=== PATIENT | female | born 1935 | race Caucasian/White ===

== ENCOUNTER → 2017-03-12 | Outpatient (CLI) | payer MEDICARE, OTHER ==
[~2017-03-12] MED LIST: ACET65TA OR; ASPI325T OR; CALCARB WITH VIT D PO; HYDROCLOROTHIAZIDE PO; MAG-TAB OR; NORV5TAB OR; POTA10CA2 OR; SIMV20TA2 OR; SYNT50TA OR; VITA500C OR; [UNRECOGNIZED DRUG - OTHER] OR; [UNRECOGNIZED DRUG - OTHER] PO
--- NOTE | 2017-03-12 15:07 | REPMRS ---
Patient History The patient states she has not had a clinical breast exam in over a year. Patient has history of other cancer at age 75. Family history of unknown cancer in sister at age 40. Took estrogen for 1 year. Digital Mammo Screening Bilat: March 12, 2017 - Exam #: [id number] Bilateral CC and MLO view(s) were taken. Technologist: Marisa Chambers, Technologist Prior study comparison: March 06, 2016, bilateral digital mammo screening bilat performed at [facility]. March 07, 2015, bilateral digital mammo screening bilat performed at [facility]. FINDINGS: There are scattered fibroglandular densities. There has been no change in the appearance of the mammogram from the prior studies. There is a mild amount of residual fibroglandular tissue which is fairly symmetric. There is no interval development of dominant mass, architectural distortion, or clustered microcalcification suggestive of malignancy. ASSESSMENT: BI-RADS/ACR category 1 mammogram. Negative. Recommendation Routine screening mammogram in 1 year (for women over age 40). This mammogram was interpreted with the aid of an FDA-approved computer-aided dectection system. Electronically Signed By: Jose A Parra MD 03/12/17 [id number]
== END ==
LOC: M RAD 14:19
PROVIDERS: ATTEND Internal Medicine
DX: Z12.31 Encounter for screening mammogram for malignant neoplasm of breast (principal); Z85.9 Personal history of malignant neoplasm, unspecified

== ENCOUNTER → 2017-10-11 | Outpatient (CLI) | payer MEDICARE, OTHER | LOC: M WUC 15:09 | DX: J20.9 Acute bronchitis, unspecified (principal) | CPT/HCPCS: 71046 ==

== ENCOUNTER → 2017-11-11 | Outpatient (CLI) | payer MEDICARE, OTHER | LOC: M WUC 11:57 | DX: M11.252 Other chondrocalcinosis, left hip (principal); M81.0 Age-related osteoporosis without current pathological fracture | CPT/HCPCS: 73502 ==

== ENCOUNTER → 2018-03-14 | Outpatient (CLI) | payer MEDICARE, OTHER | LOC: M RAD 14:44 | DX: Z12.31 Encounter for screening mammogram for malignant neoplasm of breast (principal) | CPT/HCPCS: 77067 ==

== ENCOUNTER → 2019-03-17 | Outpatient (CLI) | payer MEDICARE, OTHER ==
--- NOTE | 2019-03-17 10:21 | REP ---
BILATERAL SCREENING DIGITAL MAMMOGRAM WITHOUT 3D TOMOSYNTHESIS: There are no palpable abnormalities or other breast complaints. The the patient states she has not had a clinical breast examination in over a year. The Tyrer Cuzick Score is: 0.3% . Comparisons are 02/28/2014, 03/06/2016 and 03/14/2018. The breasts are heterogeneously dense, which could obscure small masses. There is no dominant mass, micro calcific cluster or architectural distortion that would indicate malignancy. There is no change from the prior studies. Impression: BIRADS/ACR category 1 mammogram. Negative. Recommendation: Routine annual screening mammography. Because of the increased breast density, annual adjunctive breast MRI in addition to screening mammography is recommended. These can be performed at alternating six month intervals. This mammogram was interpreted with the aid of a FDA approved computer-aided detection system. A. Negative mammogram reports should not delay biopsy if a dominant or clinically suspicious mass is present. B. Not all breast cancers are identified by mammography or tomosynthesis. C. Adenosis and dense breasts may obscure an underlying neoplasm. Patient letter M1 dense breasts. Electronically Signed by Jose A St MD 03/17/2019 10:13 A
== END ==
LOC: M RAD 09:37
PROVIDERS: ATTEND Internal Medicine
DX: Z12.31 Encounter for screening mammogram for malignant neoplasm of breast (principal)

== ENCOUNTER → 2019-08-27 | Outpatient (CLI) | payer MEDICARE, OTHER ==
--- NOTE | 2019-08-27 13:47 | REP ---
RIGHT HUMERUS, TWO VIEWS: Two views of the right humerus are performed. No acute fracture or dislocation is seen and there is no evidence of intrinsic osseous pathology. There are ill-defined calcifications above the humeral head probably representing tendinous calcifications. IMPRESSION: No acute fracture or dislocation. Suspect tendinous calcifications above the humeral head. Electronically Signed by Jose A Parra MD 08/28/2019 05:49 P
--- NOTE | 2019-08-27 14:18 | REP ---
RIGHT SHOULDER, THREE VIEWS: Three views of the right shoulder are performed. No fracture or dislocation is seen. Ill-defined calcifications are seen above the humeral head which may represent tendinous calcifications. IMPRESSION: No fracture or dislocation. Suspect tendinous calcifications above the humeral head. Electronically Signed by Jose A Parra MD 08/28/2019 05:51 P
== END ==
LOC: M WUC 11:59
PROVIDERS: ATTEND Physician Assistant
DX: S40.021A Contusion of right upper arm, initial encounter (principal); W18.30XA Fall on same level, unspecified, initial encounter; Y92.009 Unspecified place in unspecified non-institutional (private) residence as the place of occurrence of the external cause

== ENCOUNTER → 2020-03-26 | Outpatient (CLI) | payer MEDICARE, OTHER ==
--- NOTE | 2020-04-11 16:15 | REPMRS ---
Patient History The patient states she has not had a clinical breast exam in over a year. Patient has history of other cancer at age 75. Family history of unknown cancer at age 40 in sister. Took estrogen for 1 year. Digital Woman Screen Mammo: March 26, 2020 - Exam #: [id number] Bilateral CC and MLO view(s) were taken. Technologist: Kelin Ruffin, Technologist Prior study comparison: March 17, 2019, bilateral digital mammo screening bilat, performed at [facility]. March 14, 2018, bilateral digital mammo screening bilat, performed at [facility]. March 12, 2017, bilateral digital mammo screening bilat, performed at [facility]. FINDINGS: The breast tissue is heterogeneously dense. This may lower the sensitivity of mammography. The Volpara volumetric breast density category is: C. There is a moderate amount of heterogeneously dense fibroglandular tissue which is fairly symmetric. There is no interval development of dominant mass, architectural distortion, or grouped microcalcification typical of malignancy. There has been no change in the appearance of the mammogram from the prior studies. 3-D tomosynthesis shows no additional findings. Assessment: BI-RADS/ACR category 1 mammogram. Negative Mammogram. Recommendation Routine screening mammogram of both breasts in 1 year (for women over age 40). This mammogram was interpreted with the aid of an FDA-approved computer-aided dectection system. Electronically Signed By: Teto Sauer MD 04/11/20 [id number]
== END ==
LOC: M WHC 08:23
PROVIDERS: ATTEND Internal Medicine
DX: Z12.31 Encounter for screening mammogram for malignant neoplasm of breast (principal)

== ENCOUNTER → 2020-07-15 | Outpatient (CLI) | payer MEDICARE, OTHER | LOC: M LABSMTC 13:46 | PROVIDERS: ATTEND Family Medicine | DX: Z20.828 Contact with and (suspected) exposure to other viral communicable diseases (principal) ==

== ENCOUNTER → 2021-05-15 | Outpatient (CLI) | payer MEDICARE, OTHER ==
--- NOTE | 2021-05-15 15:41 | REP ---
INDICATION: BILATERAL ANNUAL SCREEN MAMMO. COMPARISON: Multiple TECHNIQUE: Digital screening mammography was carried out bilaterally in the CC and MLO projections using both 2D and 3D modalities and compared to the prior exams. By history, the patient has no complaints of a palpable breast abnormality or other significant breast complaints. FINDINGS: The breasts are unchanged in size and shape. Once again, scattered dense heterogenous fibroglandular elements are seen bilaterally to such a degree that the sensitivity of the mammogram in detecting cancer is decreased. Multiple new bilateral indistinct parenchymal densities have developed in each breast. These are too numerous to count or individually assess. The are particularly seen on DBT imaging. No sita internal architectural distortion has developed. Stable benign calcifications are seen bilaterally. There is no skin thickening or nipple retraction. The Volpara volumetric breast density pattern is C. IMPRESSION: BIRADS/ACR category 0 mammogram. There are numerous new indistinct and slightly asymmetric density scattered throughout both breasts as described above. Due to the complexity of the findings breast MRI is recommended at this time since no one arabella density appears more suspicious than any other. Bilateral multifocal multicentric malignancy cannot be ruled out by this exam. This mammogram was interpreted with the aid of an FDA-approved computer-aided detection system. The patient states she had a clinical breast exam in over a year. The patient letter being requested is M0. RECOMMENDATION: As above <Electronically signed by Avery Antunez > 05/15/21 [id number]
== END ==
LOC: M WHC 14:41
PROVIDERS: ATTEND Internal Medicine
DX: Z12.31 Encounter for screening mammogram for malignant neoplasm of breast (principal)

== ENCOUNTER → 2021-06-18 | Outpatient (CLI) | payer MEDICARE, OTHER ==
[~2021-06-18] MED LIST changes: +PROHANCE 279.3MG/ML 5ML VIAL As Ordered ONE
--- NOTE | 2021-06-19 09:10 | REP ---
INDICATION: ABN MAMMO FINDINGS. COMPARISON: Mammogram 05/15/2021. TECHNIQUE: Three Felipa MRI imaging was performed with a dedicated breast coil. Axial, coronal, and sagittal T1 and T2 weighted scans were obtained with and without fat saturation in the usual fashion. The study includes dynamically acquired post gadolinium-enhanced imaging with image subtraction. Maximum intensity projection and multi planar reformation imaging is included as well. This study is interpreted with the aid of [employer], an FDA approved computer aided detection (CAD) software program, on a dedicated breast MRI workstation. The gadolinium enhancement dose is 5 mL of intravenous ProHance. FINDINGS: Mild scattered fibroglandular tissue is present bilaterally. No significant cystic change is seen in either breast. There is mild background parenchymal enhancement bilaterally. There is no suspicious enhancing mass or morphologic abnormality. There is an asymmetric mildly prominent right axillary lymph node which measures approximately 2.9 x 0.9 cm. Short axis dimension is upper limits of normal. There is abnormal vague enhancement in the region of the right middle lobe inferiorly. This is most compatible with either inflammatory or neoplastic pathology. CT of the chest is recommended to further evaluate. Incidental note is made of multiple gallstones in the gallbladder. IMPRESSION: BI-RADS category 1, negative bilateral breast MRI. No suspicious enhancing mass or morphologic abnormality in the breasts. However, there is a mildly prominent asymmetric right axillary lymph node measuring 2.9 x 0.9 cm, which is likely related to an area of abnormal vague enhancement in the region of the right middle lobe inferiorly. This right middle lobe abnormality is most compatible with either an inflammatory or neoplastic process. CT of the chest with IV contrast is recommended to further evaluate. <Electronically signed by Jose A Parra > 06/19/21 [id number]
== END ==
LOC: M RAD 14:39
PROVIDERS: ATTEND Internal Medicine
DX: R92.8 Other abnormal and inconclusive findings on diagnostic imaging of breast (principal)
CPT/HCPCS: A9576; C8908

== ENCOUNTER → 2021-07-04 | Outpatient (CLI) | payer MEDICARE, OTHER ==
[~2021-07-04] MED LIST changes: -PROHANCE 279.3MG/ML 5ML VIAL As Ordered ONE
--- NOTE | 2021-07-04 12:40 | REP ---
INDICATION: RT MIDDLE LOBE NODULE SEEN ON MRI BREAST COMPARISON: None TECHNIQUE: Axial noncontrast images from the thoracic inlet to the upper abdomen with coronal and sagittal reformations. This CT examination was performed using the following dose reduction techniques: Automated exposure control, adjustment of mA and/or kv according to the patient's size, and use of iterative reconstruction technique. FINDINGS: There is a focal area of parenchymal consolidation along the basilar aspect of the right middle lobe measuring 3.0 x 1.4 x 1.4 cm as well as small cluster of noncalcified nodules along the medial aspect of the right middle lobe measuring roughly 5 mm. Mediastinal and possibly right hilar adenopathy is suggested although evaluation is limited by the lack of contrast enhancement. No effusion. No pneumothorax. Tracheobronchial tree is patent. Underlying mild chronic age-related interstitial changes are noted along with presumed chronic changes at the basilar aspect of the lingula. Further evaluation of the mediastinum demonstrates atherosclerotic changes to the thoracic aorta and coronary arteries without aortic aneurysm or cardiomegaly. Surrounding musculoskeletal structures demonstrate degenerative changes without acute osseous abnormality. IMPRESSION: 1. Area of parenchymal consolidation along the basilar right middle lobe and small medial middle lobe nodules. Possible adenopathy. Short-term 3 month follow-up contrast-enhanced chest CT examination is recommended. <Electronically signed by Quang Umaña > 07/04/21 [id number]
== END ==
LOC: M PLAIMG 10:11
PROVIDERS: ATTEND Internal Medicine
DX: R92.0 Mammographic microcalcification found on diagnostic imaging of breast (principal)

== ENCOUNTER → 2021-07-30 | Outpatient (CLI) | payer MEDICARE, OTHER ==
--- NOTE | 2021-07-30 15:55 | REP ---
INDICATION: PAIN COMPARISON: None. TECHNIQUE: AP, lateral, bilateral oblique and sunrise views right and left knee. FINDINGS: Age-related osteopenia and relatively symmetric moderate tricompartmental osteoarthritic degenerative changes noted. Findings include increased sclerosis along the tibial plateau, joint space narrowing, chondrocalcinosis, cortical irregularity and subtle spurring/osteophyte formation. There is no evidence for acute fracture or dislocation. No obvious effusion. IMPRESSION: Symmetric osteopenia and moderate tricompartmental osteoarthritic degenerative changes. <Electronically signed by Quang Umaña > 07/30/21 0625
== END ==
LOC: M WUC 15:22
PROVIDERS: ATTEND Physician Assistant
DX: M25.561 Pain in right knee (principal); M25.562 Pain in left knee; M17.0 Bilateral primary osteoarthritis of knee

== ENCOUNTER → 2021-12-18 | Outpatient (CLI) | payer MEDICARE, OTHER | LOC: M RAD 08:15 | PROVIDERS: ATTEND Internal Medicine | DX: R91.1 Solitary pulmonary nodule (principal) ==

== ENCOUNTER → 2022-02-03 | Outpatient (CLI) | payer MEDICARE, OTHER | LOC: M PLARAD 14:47 | PROVIDERS: ATTEND Internal Medicine | DX: R93.89 Abnormal findings on diagnostic imaging of other specified body structures (principal); R91.8 Other nonspecific abnormal finding of lung field | CPT/HCPCS: 78815; A9552 ==

== ENCOUNTER → 2022-05-26 | Outpatient (CLI) | payer MEDICARE, OTHER | LOC: M RAD 14:53 | PROVIDERS: ATTEND Internal Medicine Pulmonary Disease | DX: R91.8 Other nonspecific abnormal finding of lung field (principal) ==

== ENCOUNTER → 2022-06-01 | Outpatient (CLI) | payer MEDICARE, OTHER ==
[~2022-06-01] MED LIST changes: +ASPI81TA26 PO; +CIDA500T2 PO; +D200CAP3 PO; +ICAPCAP2 PO; +LEVO75TA4 PO; +POTA-150 PO; +SIMV20TA22 PO
== END ==
LOC: M LABSMTC 11:23
PROVIDERS: ATTEND Anesthesiology
DX: Z01.818 Encounter for other preprocedural examination (principal); Z11.52 Encounter for screening for COVID-19; Z79.01 Long term (current) use of anticoagulants

== ENCOUNTER → 2022-06-01 | Outpatient (CLI) | payer MEDICARE, OTHER ==
[2022-06-01 15:55] LABS: PLATELET COUNT, AUTOMATED 138 10^3/uL (150-450)
[2022-06-01 16:12] LABS: INR 0.87
[2022-06-01 16:13] LABS: PARTIAL THROMBOPLASTIN TIME 29.3 SECONDS (24.8-34.2)
== END ==
LOC: M PLALAB 12:33
PROVIDERS: ATTEND Internal Medicine Pulmonary Disease
DX: Z01.812 Encounter for preprocedural laboratory examination (principal); Z79.01 Long term (current) use of anticoagulants

== ENCOUNTER 2022-06-03 07:00 | Day surgery (SDC) | payer MEDICARE, OTHER ==
[~2022-06-03] VITALS: Ht 157.5 cm; Wt 52.2 kg
[~2022-06-03 07:00] MED LIST changes: +ALBUTEROL SULFATE 2.5 MG/0.5 ML INH NEB SOLN INH ONE; +LIDOCAINE PRES-FREE 2% 10ML AMP NEB ONE
[2022-06-03] MEDS ORDERED: LR 1,000 ML IV SCH ×2 (07:05→10:30)
[2022-06-03 07:42] LABS: HEMATOCRIT 36.4 % (36.0-47.0); HEMOGLOBIN 12.4 g/dl (12.0-15.5); MEAN CORPUSCULAR HGB CONC 34.1 g/dl (32.0-36.5); MEAN CORPUSCULAR VOLUME 96.8 fl (80.0-96.0); PLATELET COUNT, AUTOMATED 138 10^3/uL (150-450); RED BLOOD COUNT 3.76 10^6/uL (4.00-5.40); WHITE BLOOD COUNT 4.1 10^3/uL (4.0-10.0)
[2022-06-03] MEDS ORDERED: THROMBIN 5,000 UNITS VIAL As Ordered ONE (08:13)
[2022-06-03] MEDS ORDERED: CETACAINE SPRAY 5GM As Ordered ONE (08:13)
[2022-06-03] MEDS ORDERED: EPINEPHrine 1MG/10ML SYRINGE 1.5IN As Ordered ONE (08:14)
[2022-06-03] MEDS ORDERED: fentaNYL 100 MCG/2 ML INJECTION As Ordered ONE (08:18)
[2022-06-03] MEDS ORDERED: propofoL 200 MG/20 ML VIAL As Ordered ONE (08:18)
[2022-06-03] MEDS ORDERED: ROCURONIUM BROMIDE 50 MG/5 ML VIAL As Ordered ONE (08:18)
[2022-06-03] MEDS ORDERED: MIDAZOLAM INJ 2MG/2ML VIAL (J2250 PER 1MG) As Ordered ONE (08:18)
[2022-06-03] MEDS ORDERED: LIDOCAINE 2% 100MG/5ML SDV (FOR ANES.) As Ordered ONE (08:18)
[2022-06-03 08:47] LABS: BLOOD UREA NITROGEN 17 MG/DL (7-18); CALCIUM LEVEL 9.2 MG/DL (8.8-10.2); CARBON DIOXIDE LEVEL 32 MEQ/L (21-32); CHLORIDE LEVEL 104 MEQ/L (98-107); CREATININE FOR GFR 0.91 MG/DL (0.55-1.30); GLOMERULAR FILTRATION RATE > 60.0 (>32); GLUCOSE, FASTING 103 MG/DL (70-100); POTASSIUM SERUM 3.5 MEQ/L (3.5-5.1); SODIUM LEVEL 140 MEQ/L (136-145)
[2022-06-03] MEDS ORDERED: ePHEDrine SULFATE 25 MG/5 ML(5MG/ML) SYRINGE As Ordered ONE (09:13)
[2022-06-03] MEDS ORDERED: PHENYLephrine 500MCG 5ML (100MCG/ML) SYRINGE As Ordered ONE (09:13)
[2022-06-03] MEDS ORDERED: dexameTHASONE 4 MG/ML 1ML VIAL (J1100 PER 1MG) As Ordered ONE (09:34)
[2022-06-03] MEDS ORDERED: ONDANSETRON 4MG 2ML VIAL As Ordered ONE (09:34)
[2022-06-03] MEDS ORDERED: SUGAMMADEX SODIUM 500 MG/5 ML VIAL (BRIDION) As Ordered ONE (09:52)
[2022-06-03] MEDS ORDERED: fentaNYL 100 MCG/2 ML INJECTION IV PRN (10:30)
[2022-06-03] MEDS ORDERED: ONDANSETRON 4MG 2ML VIAL IV PRN (10:30)
[2022-06-03] MEDS ORDERED: oxyCODONE 5MG TAB PO PRN (10:30)
[2022-06-03] MEDS ORDERED: MORPHINE 2 MG/ML 1ML VIAL IV PRN (10:30)
[2022-06-03] MEDS ORDERED: METOCLOPRAMIDE INJ 10MG/2ML VIAL (J2765 PER 1) IV STA (12:26)
[2022-06-03 14:06] VITALS: BP 161/72
== END 2022-06-03 14:38 | disposition home or self-care (01) ==
LOC: M SDC 07:00
PROVIDERS: ATTEND Internal Medicine Pulmonary Disease
DX: C83.02 Small cell B-cell lymphoma, intrathoracic lymph nodes (principal); I10 Essential (primary) hypertension; E03.9 Hypothyroidism, unspecified; E78.5 Hyperlipidemia, unspecified; Z86.73 Personal history of transient ischemic attack (TIA), and cerebral infarction without residual deficits; Z79.899 Other long term (current) drug therapy; Z79.890 Hormone replacement therapy; Z79.82 Long term (current) use of aspirin
CPT/HCPCS: 31623; 31624; 31627; 31628; 31629; 31654; 36415; 71045; 76000; 80048; 85027; 87070; 87102; 87116; 87186; 87205; 87206; 88104; 88108; 88173; 88305; 88313; 93005; J0171; J1100; J2250; J2370; J2405; J2765; J3010; S2900